=== PATIENT | female | born 1980 | race Caucasian/White ===

== ENCOUNTER 2024-10-24 18:12 | Emergency (ER) | payer BC, SELFPAY ==
[2024-10-24 18:17] VITALS: BP 142/82
--- NOTE | 2024-10-24 18:47 | ED.GENMED ---
History of Present Illness
General
Chief Complaint: Musculo-Skeletal Complaint
Time Seen by Provider: 10/24/24 18:47
History of Present Illness
History of Present Illness:
TIME OF INITIAL ENCOUNTER: 6:50 PM
HPI: Earlier today, the patient reached down to cook pickled meat her puppy that was escaping and she fell forward. She struck her left ring finger awkwardly. She noted deformity at the left DIP joint. She had some vague discomfort to the knees and left
hip however she has been walk out difficulty. There is no associated laceration or bleeding. The patient was able to go to her craft show after the injury occurred and then came here later in the day for evaluation as she had persistent concern of
the appearance of the left fourth digit.
EXAM:
GENERAL: Well appearing in no distress
CERVICAL SPINE: No midline c-spine tenderness with excellent AROM
HEAD: No evidence of craniofacial trauma
CHEST: No chest wall tenderness, normal heart sounds
LUNGS: Equal lung sounds, no respiratory distress
ABDOMEN: No abdominal tenderness, no peritoneal signs
EXTREMITIES: The patient is unable to extend at the left fourth DIP joint
NEURO: Excellent strength all extremities, appropriate mental status, normal speech/language
NUMBER AND COMPLEXITY OF PROBLEMS ADDRESSED AT THE ENCOUNTER
� Chronic conditions affecting care: Smoker, diabetes, anxiety/depression
� Acute Exacerbation and/or Progression of Chronic Illness:
� Differential Diagnosis includes:
AMOUNT AND/OR COMPLEXITY OF DATA TO BE REVIEWED AND ANALYZED
� I performed an independent evaluation of and my interpretation is:
EKG:
CT:
X-rays: Deformity noted at DIP but no clear evidence of associated fracture
Laboratory Studies:
Other:
� Review of other/old records: I reviewed records, the patient had a cholecystectomy in 2013
� Clinical information was obtained by an independent historian: None needed
� Prescriptions/Medications Considered but not given:
� Further testing considered but not performed:
RISK OF COMPLICATIONS AND/OR MORBIDITY OR MORTALITY OF PATIENT MANAGEMENT
� Social determinants of health affecting care: Lives at home
� Discussion with other providers:
� Escalation of care including admission/observation vs risk of discharge considered: X-ray obtained, exam consistent with mallet finger�splinted. Will need to follow-up with orthopedics.
ANY OTHER UPDATES:
Past History
Past History
ED Past Medical History: Asthma, Hypercholesterolemia, NIDDM, Psychiatric (Depression, anxiety) and Other (Obesity)
ED Past Surgical History: Cholecystectomy and
Social History
Tobacco: Smoker (Occasional cigarette use)
Alcohol: Occasional
Drug: None
Personal:
Living: with family
Employment: Employed
Family History
Family History: Asthma
Phy Exam
Physical Exam
Physical Exam:
See HPI
Course
Orders/Labs/Results
Orders:
Orders
10/24/24 18:51
Aluminium Finger Splint Left ONCE
CR Finger(s)/thumb Min 2 Vw Lt Urgent
Comment:
Reason For Exam: L 4th digit pain; cannot extended at DIP
Vital Signs
Initial and Last Documented VS:
Initial Vital Signs
Temp Pulse Resp BP Pulse Ox
36.6 C 94 16 142/82 96
10/24/24 18:17 10/24/24 18:17 10/24/24 18:17 10/24/24 18:17 10/24/24 18:17
Last Documented Vital Signs
Temp Pulse Resp BP Pulse Ox
36.6 C 82 16 141/78 97
10/24/24 18:17 10/24/24 20:32 10/24/24 20:32 10/24/24 20:32 10/24/24 20:32
*Critical Care Note
Total Time (30-74mins, 75-104mins- exclusive of procedures): Not Applicable
ED Attending Note
-
Portions of this chart may have been created with voice recognition software.� Occasional wrong word or��sound alike� substitutions may have occurred due to the inherent limitations of voice recognition software.
Discharge Plan
Departure
Patient Disposition: Home (Routine Discharge)
Date of Disposition: 10/24/24
Time of Disposition: 20:16
Patient with high blood pressure during this ER visit?: Yes
Discharge Problem:
Mallet deformity of left ring finger
Instructions: Common Finger Injuries ED
Prescriptions:
No Action
albuterol sulfate 2.5 MG/3 ML solution for nebulization
2.5 mg inhalation R Q4HPRN PRN (Reason: WHEEZE/COUGH)
albuterol sulfate 1 PUFF HFA aerosol inhaler
1 - 2 puff inhalation R Q4HPRN PRN (Reason: WHEEZE)
escitalopram oxalate 10 MG tablet
10 mg PO DAILY
Folic Acid
1 tab PO DAILY
azithromycin 250 MG tablet
250 mg PO DAILY Qty: 6 0RF
penicillin V potassium 500 MG tablet
500 mg PO BID Qty: 20 0RF
ibuprofen 600 MG tablet
600 mg PO Q6 Qty: 15 0RF
amoxicillin [Amoxil] 875 MG tablet
875 mg PO BID Qty: 14 0RF
tramadol 50 MG tablet
50 mg PO TIDPRN PRN (Reason: pain) Qty: 7 0RF
tramadol 50 MG tablet
50 mg PO NOW Qty: 1 0RF
Rx Instructions:
to go, to take at home
Referrals:
Scooter Patrick MD [Active] - Follow up in 2-3 days
Rodri Jon MD [Family Provider] -
Activity Restrictions/Additional Instructions:
Follow-up with orthopedics such as Dr. Patrick for further management of mallet finger.
Interventions
Interventions:
*Risk Screen - Suicide Last Done: 10/24/24 18:19
*General Assessment Last Done: 10/24/24 18:56
*Neglect/Abuse Screening Last Done: 10/24/24 18:19
ED- Fall Risk Assessment Last Done: 10/24/24 20:32
*ED COVID-19 Vaccine History Last Done: 10/24/24 18:56
*Nursing Disposition Last Done: 10/24/24 20:32
ED-Musculoskeletal Assessment Last Done: 10/24/24 18:56
Discharge Date and Time
Discharge Date/Time: 10/24/24 20:33
Print Language: [email or web address]
[2024-10-24 20:32] VITALS: BP 141/78
== END 2024-10-24 20:33 | disposition home or self-care (01) ==
LOC: EMR 18:12
PROVIDERS: EMERGENCY PHYSICIAN Emergency Medicine; FAMILY PHYSICIAN Family Medicine
DX: M20.012 Mallet finger of left finger(s) (principal); J45.909 Unspecified asthma, uncomplicated; E78.00 Pure hypercholesterolemia, unspecified; E11.9 Type 2 diabetes mellitus without complications; Z90.49 Acquired absence of other specified parts of digestive tract; F17.210 Nicotine dependence, cigarettes, uncomplicated
CPT/HCPCS: 99283; 73140